=== PATIENT | male | born 1965 | race American Indian/Alaskan Native ===

== ENCOUNTER 2021-05-31 22:16 | Emergency (ER) | payer SELFPAY ==
[2021-06-01 00:32] VITALS: BP 146/91
[2021-06-01] MEDS ORDERED: ACETAMINOPHEN 500 MG TAB PO ONE (03:02)
[2021-06-01] MEDS ORDERED: TETANUS,DIPH,PERTUSS(ACELL) VACCINE 0.5 ML SYRINGE IM ONE (03:02)
[2021-06-01] MEDS ORDERED: SULFAMETHOXAZOLE/TRIMETHOPRIM 800/160MG DS TAB PO ONE (03:02)
[2021-06-01] MEDS ORDERED: IBUPROFEN 600 MG TAB PO ONE (03:02)
--- NOTE | 2021-06-01 03:38 | XRay Report ---
LEFT INDEX FINGER 3 VIEWS INDICATION / CLINICAL INFORMATION: Left index finger injury COMPARISON: None available. FINDINGS: BONES and JOINT(S): No acute fracture or subluxation. No significant arthritis. SOFT TISSUES: Moderate edema is noted throughout the left index finger. No other significant abnormal ity. ADDITIONAL FINDINGS: None. IMPRESSION: Moderate left index finger edema without other acute findings. Signer Name: Juan Candelario MD Signed: 06/01/2021 3:34 AM Workstation Name: [id number]
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
[2021-06-01] MEDS ORDERED: NEOMY 3.5 MG/BACIT 400 UNITS/POLY B 5000 UNITS/GM OINT PACKET TP ONE (04:42)
== END 2021-06-01 05:26 | disposition home or self-care (01) ==
LOC: ED 22:16
DX: S61.211A Laceration without foreign body of left index finger without damage to nail, initial encounter (principal); S63.631A Sprain of interphalangeal joint of left index finger, initial encounter; E11.9 Type 2 diabetes mellitus without complications; X58.XXXA Exposure to other specified factors, initial encounter; Y93.9 Activity, unspecified; Y92.89 Other specified places as the place of occurrence of the external cause; Y99.8 Other external cause status
CPT/HCPCS: 73140; 90471; 90715; 99283; A6250